=== PATIENT | female | born 1985 ===

== ENCOUNTER 2018-08-26 13:22 | Emergency (ER) | payer BC, OTHER ==
--- OUTSIDE RECORDS SUMMARY | 2018-08-26 13:32 | XMS REPORT | Continuity of Care Document ---
:1985 External Reference #:[id number] Author Name Amanda Nathan NP Address [address] [place] [address] Care Team Providers Name Role Phone Hayley Pacheco M.D. Care Team Information Security Inspector Unavailable Hayley Pacheco M.D. Primary Care Physician Unavailable Payers Date Identification Numbers Payment Provider Subscriber Effective: 2017 Policy Number: [id number] BC/BS Of GÓMEZ Katy Ariza PayID: [id number] [address] [place] [id number] Advance Directives Description No Information Available Problems Description No Information Family History Date Family Member(s) Observation Comments Father Hypertension Father Glaucoma Father Angina Mother Uterine Leiomyoma Onset: (04/12/2018) Mother 62 First Son Seasonal Allergies Onset: (04/12/2018) First Son 9 First Son Asthma Siblings None Social History Type Date Description Comments Sex Unknown Education Highest level completed, Doctorate Marital Status . Lives With Spouse Lives With Children Occupation Pharmacist Occupation [employer] former Tobacco Use Start: Unknown Never Smoked Cigarettes ETOH Use Occasional 3-4/week Recreational Drug Use Never Used Drugs Tobacco Use Start: Unknown Patient has never smoked Smoking Status Reviewed: 08/04/18 Patient has never smoked Currently Active Patient is currently sexually active Contraceptive Methods 2013 Mirena Dom Violence Screen screening has been done feels safe at home Allergies, Adverse Reactions, Alerts Description No Known Drug Allergies Medications Medication Date Status Form Strength Qnty SIG Indications Ordering Provider Prilosec OTC Active Tablets DR 20mg 30tabs 1 by Amanda Nathan NP every day Immunizations Description No Information Available Vital Signs Date Vital Result Comment 08/04/2018 8:46am BP Systolic 102 mmHg BP Diastolic 60 mmHg Heart Rate 60 /min Body Temperature 97.7 F Respiratory Rate 16 /min Height 61 inches 5'1" Weight 163.00 lb BMI (Body Mass Index) 30.8 kg/m2 04/12/2018 1:19pm BP Systolic 110 mmHg BP Diastolic 80 mmHg Heart Rate 64 /min Body Temperature 98.3 F Respiratory Rate 18 /min Height 61 inches 5'1" Weight 169.00 lb BMI (Body Mass Index) 31.9 kg/m2 Results Test Date Facility Test Result H/L Range Note CBC Electronic Fma 08/04/2018 Anant Hollins ([facility]) WBC 6.2 x10^3/UL 4.0- 10.0 RBC 4.81 x10^6/UL 3.93-6.00 HGB 13.6 g/dL 12.0-17.0 HCT 40 % 35-50 MCV 82.5 fL 80.0-95.0 MCH 28.3 pg 25.6-32.2 MCHC 34.3 g/dL 32.2-36.0 RDW-CV 12.8 % 11.6-14.4 PLT 409 x10^3/UL High 163-400 MPV 11.3 fL 9.4-12.4 Lexy# 2.24 x10^3/UL 1.56-6.13 Lymph# 3.03 x10^3/UL 1.18-3.74 Knox# 0.62 x10^3/UL 0.24-0.82 Eos # 0.2 x10^3/UL 0.0-0.5 Baso # 0.10 x10^3/UL High 0.01-0.08 Lexy% 36.1 % 34.0-70.0 Lymph % 48.9 % 20.0-52.0 Knox% 10.0 % 5.0-12.0 Eos% 3.4 % 0.7-7.0 Baso% 1.6 % High 0.1-1.2 Comprehensive Metabolic 08/04/2018 Anant Hollins ([facility]) Sodium 140 mEq/L 134-149 Prof Potassium 4.4 mEq/L 3.6-5.5 Chloride 106 mEq/L 94-112 Carbon Dioxide 21 mEq/L 21-32 Glucose 100 mg/dL 70-105 BUN 10 mg/dL 6-26 Creatinine 0.9 mg/dL 0.6-1.4 BUN/Creat Ratio 11.1 CALC 8.0-36.0 Calcium 9.0 mg/dL 8.6-10.2 Total Protein 7.5 g/dL 6.4-8.3 Albumin 4.7 g/dL 3.8-5.5 Globulin 2.8 g/dL 2.0-4.8 A/G Ratio 1.7 CALC 0.6-2.3 Alk. Phosphatase 56 U/L 30-110 Alt (SGPT) 19 U/L 7-35 Ast (Sgot) 18 U/L 5-34 Total Bilirubin 0.6 mg/dL 0.2-1.3 GFR Non- >60 ml/min/1.73m^ >=60 GFR >60 ml/min/1.73m^ >=60 Laboratory test finding 08/04/2018 Anant Gunjan ([facility]) TSH 1.38 mIU/L 0.50-6.00 Comprehensive Metabolic 04/12/2018 Anant Gunjan ([facility]) Sodium 135 mEq/L 134-149 Prof Potassium 4.3 mEq/L 3.6-5.5 Chloride 104 mEq/L 94-112 Carbon Dioxide 22 mEq/L 21-32 Glucose 89 mg/dL 70-105 BUN 14 mg/dL 6-26 Creatinine 0.7 mg/dL 0.6-1.4 BUN/Creat Ratio 20.0 CALC 8.0-36.0 Calcium 8.7 mg/dL 8.6-10.2 Total Protein 7.0 g/dL 6.4-8.3 Albumin 4.4 g/dL 3.8-5.5 Globulin 2.6 g/dL 2.0-4.8 A/G Ratio 1.7 CALC 0.6-2.3 Alk. Phosphatase 53 U/L 30-110 Alt (SGPT) 20 U/L 7-35 Ast (Sgot) 15 U/L 5-34 Total Bilirubin 0.4 mg/dL 0.2-1.3 GFR Non- >60 ml/min/1.73m^ >=60 GFR >60 ml/min/1.73m^ >=60 Lipid Profile 04/12/2018 Anant Gunjan ([facility]) Cholesterol 122 mg/dL 120- 200 Triglycerides 90 mg/dL 30-200 HDL Cholesterol 41 mg/dL 30-85 LDL (Calculated) 63 CALC 0-129 VLDL Cholesterol 18 mg/dL 0-50 HDL Risk Factor 3.0 CALC 0.0-4.4 Laboratory test finding 04/12/2018 Anant Hollins (a) TSH 3.57 mIU/L 0.50-6.00 CBC Electronic Fma 04/12/2018 Anant Gunjan (a) WBC 7.6 x10^3/UL 4.0- 10.0 RBC 4.66 x10^6/UL 3.93-6.00 HGB 13.0 g/dL 12.0-17.0 HCT 39 % 35-50 MCV 83.3 fL 80.0-95.0 MCH 27.9 pg 25.6-32.2 MCHC 33.5 g/dL 32.2-36.0 RDW-CV 12.9 % 11.6-14.4 PLT 377 x10^3/UL 163-400 MPV 11.3 fL 9.4-12.4 Lexy# 3.40 x10^3/UL 1.56-6.13 Lymph# 3.14 x10^3/UL 1.18-3.74 Knox# 0.79 x10^3/UL 0.24-0.82 Eos # 0.2 x10^3/UL 0.0-0.5 Baso # 0.07 x10^3/UL 0.01-0.08 Lexy% 44.8 % 34.0-70.0 Lymph % 41.4 % 20.0-52.0 Knox% 10.4 % 5.0-12.0 Eos% 2.5 % 0.7-7.0 Baso% 0.9 % 0.1-1.2 Procedures Description No Information Available Encounters Type Date Location Provider Dx Diagnosis Office Visit 04/12/2018 Main Office Amanda Nathan, Z00.01 Encounter for 1:30p [employer] general adult medical exam w abnormal findings R10.12 Left upper quadrant pain E66.9 Obesity, unspecified E28.2 Polycystic ovarian syndrome K21.9 Gastro-esophageal reflux disease without esophagitis Plan of Treatment 08/04/2018 - Amanda Nathan, NPR42 Dizziness and giddinessComments:Do not drive or operate heavy machinery if experiencing dizziness. Make sure you are drinking at least 8-10 glasses of water a dayReturn or seek medical care for the following: numbness or tingling of your extremitieschest painsevere headachechange in your visionchange in speech loss of consciousness Notify office if worsening symptoms or failure to improve.H61.23 Impacted cerumen, bilateralComments:Warm water irrigation successful. Patient tolerated well. Discussed not to use Q tips, rather use a wash cloth around outside of ears. Avoid excessive use of headphones that enter ear canal, if using for long time use over ear type. Debrox as needed for excessive ear wax.R07.89 Other chest painComments:continue PT Massage [place] patient instructed to call back if condition fails to improve or worsens.F41.9 Anxiety disorder, unspecifiedComments:print out provided for mental health providers in areaAllComments:~B_~U_Medication Management~b_~u_ Patient Understands medications he 's taking? Yes No Are there Barriers to Adherence? Yes No Has the patient been asked about herbal supplements and therapies, and OTC meds? Yes No ~B_~U_Care Plan~b_~u_1. Patient has been queried about patient's goals/preferences and functional/lifestyle goals at relevant visits. If relevant, describe: na2. Treatment goals as explained to the patient: above3. Are there barriers to meeting treatment goals? Yes No If Yes, please describe:4. Self-Management goals as described to the patient:Yes NoAs always, we strongly encourage a healthy diet and making physical activity a part of your every day life. If you have questions about how or where to start, please contact the office.Follow up:Last appointment with MD: Never Annual Due: 04/2019
[2018-08-26 13:38] VITALS: BP 143/87
[2018-08-26] MEDS ORDERED: Tetan/Diph/Pertus SYR(Tdap)* 0.5 ML SYR(BOOSTRIX) use SYR IM ONE (13:54)
--- NOTE | 2018-08-26 13:57 | UC ---
General HPI - HPI Summary HPI Summary: States she cut her heel on a metal edge of a cart while at work today at [employer] [facility] [employer] [facility]. Was bleeding. Did not sprain it. No foreign body broke off. Came home and her was concerned about her and recommended she get evaluated. Not sure when her last tetanus was. - History of Current Complaint Chief Complaint: UCLowerExtremity Stated Complaint: RT FOOT INJURY Time Seen by Provider: 08/26/18 13:47 Hx Last Menstrual Period: 08/10/18 Pain Intensity: 1 - Allergy/Home Medications Allergies/Adverse Reactions: Allergies Allergy/AdvReac Type Severity Reaction Status Date / Time No Known Allergies Allergy Verified 08/26/18 13:37 Home Medications: Home Medications NK [No Home Medications Reported] 08/26/18 [History Confirmed 08/26/18] PMH/Surg Hx/FS Hx/Imm Hx Previously Healthy: Yes - Surgical History Surgical History: Yes Surgery Procedure, Year, and Place: [facility] 2008 - Social History Alcohol Use: Weekly Substance Use Type: None Smoking Status (MU): Never Smoked Tobacco Review of Systems All Other Systems Reviewed And Are Negative: Yes Physical Exam Triage Information Reviewed: Yes Appearance: Well-Appearing Vital Signs: Initial Vital Signs Temp 98.3 F 08/26/18 13:33 Pulse 73 08/26/18 13:33 Resp 18 08/26/18 13:33 BP 143/87 08/26/18 13:33 Pulse Ox 99 08/26/18 13:33 Vital Signs Reviewed: Yes Skin Exam: Other - 4 cm superficial laceration over posterior side of heel. No actively bleeding. Mild ecchymosis surrounding area. Course/Dx - Course Course Of Treatment: 33 yr old with a laceration on her right heel Assessment No longer bleeding Minor superficial laceration. No indication for sutures States her last tdap was more than 5 years ago. Tdap given Area cleaned and bandage applied Plan Keep area clean with soap and water. Keep it covered while working If area becomes more red, swollen and/or painful, return to urgent care or follow up with your primary care physician. - Diagnoses Provider Diagnosis: Laceration Discharge - Sign-Out/Discharge Documenting (check all that apply): Patient Departure All imaging exams completed and their final reports reviewed: No Studies - Discharge Plan Condition: Good Disposition: HOME Referrals: Hayley Pacheco MD [Primary Care Provider] - Additional Instructions: Keep area clean with soap and water. Keep it covered while working If area becomes more red, swollen and/or painful, return to urgent care or follow up with your primary care physician. - Billing Disposition and Condition Condition: GOOD Disposition: Home
== END 2018-08-26 14:05 | disposition home or self-care (01) ==
LOC: UCEAST 13:22
DX: S91.311A Laceration without foreign body, right foot, initial encounter (principal); W26.8XXA Contact with other sharp object(s), not elsewhere classified, initial encounter; Y99.0 Civilian activity done for income or pay
CPT/HCPCS: 90471; 90715; 99211; G0463